=== PATIENT | female | born 1940 | race Caucasian/White ===

== ENCOUNTER 2017-09-26 09:52 | Outpatient (CLI) | payer MEDICARE, OTHER ==
[2017-09-26] MEDS ORDERED: SINCALIDE 5 MCG VIAL ONE (10:48)
--- NOTE | 2017-09-27 10:52 | Nuclear Medicine Report ---
EXAM: HEPATOBILIARY SCAN WITH CCK/KINEVAC ADMINISTRATION EXAM DATE: 09/26/2017 02:54 PM. CLINICAL HISTORY: Abdominal pain. COMPARISON: Ultrasound 04/10/2016. TECHNIQUE: Following the intravenous administration of 5.4 mCi of Tc99m Mebrofenin, a hepatobiliary s can was done centered on the liver and gallbladder in multiple sequential images and projections. Following the intravenous administration of 1.2 mcg of CCK/ Kinevac over the course of approximately 60 minutes, dynamic imaging was done and the gallbladder ejection fraction was calculated. FINDINGS: Normal extraction of tracer from the blood pool indicating normal hepatocellular function. The liver size and shape is grossly within normal limits. Appearance of tracer in the biliary tree as early as 10 minutes, within normal limits. Appearance of tracer in the gallbladder as early as 15 minutes, within normal limits, with good progr ession of filling throughout the remainder of the initial hour. Appearance of tracer in the small bowel as early as 40 minutes, within normal limits. With CCK administration, the gallbladder demonstrates an effective contraction. The gallbladder eject ion fraction is calculated to be 93%, well above the lower limit of normal of 38% for a 60-minute inj ection. IMPRESSION: 1. Patent cystic duct. 2. Patent common bile duct. 3. Negative for acute or chronic cholecystitis. 4. Gallbladder ejection fraction of 93%. [facility] Referring Provider Line: [phone] SITE ID: [id number]
== END 2017-09-26 09:53 | disposition home or self-care (01) ==
LOC: DI 09:52
PROVIDERS: ATTEND Family Medicine
DX: R10.9 Unspecified abdominal pain (principal)
CPT/HCPCS: 78227; A9537

== ENCOUNTER 2019-06-11 08:00 | Outpatient (CLI) | payer MEDICARE, OTHER | END 2019-06-11 23:59 | disposition home or self-care (01) | LOC: LAB.WCP 08:00 | PROVIDERS: ATTEND Family Medicine | DX: Z53.9 Procedure and treatment not carried out, unspecified reason (principal) ==

== ENCOUNTER 2019-07-20 14:11 | Outpatient (CLI) | payer MEDICARE, OTHER | END 2019-07-20 14:12 | disposition critical access hospital (66) | LOC: EMS 14:11 | PROVIDERS: ATTEND Surgery | DX: R07.9 Chest pain, unspecified (principal); M54.9 Dorsalgia, unspecified | CPT/HCPCS: A0425; A0429 ==

== ENCOUNTER 2019-07-20 14:33 | Emergency (ER) | payer MEDICARE, OTHER ==
--- NOTE | 2019-07-20 14:49 | ED Physician Documentation ---
PD HPI CHEST PAIN - Stated complaint Stated Complaint: CP/ BACKPAIN - Chief complaint Chief Complaint: Cardiac - History obtained from History obtained from: Patient - History of Present Illness Timing - onset: Other (79-year-old woman with no known history of coronary disease. Starting 2 days ago she had substernal chest pressure with the back discomfort while gardening. It was associated with inappropriate shortness of breath. Starting last night she has had a minimally productive cough. Feels like phlegm is stuck in her chest. She had an episode of chest pressure again today. She was seen at the doctor's office and referred here for further evaluation and treatment. She is pain-free now.) Review of Systems Ten Systems: 10 systems reviewed and negative Constitutional: denies: Fever, Chills, Fatigue Nose: denies: Rhinorrhea / runny nose, Congestion Cardiac: denies: Palpitations, Pedal edema, Calf pain Respiratory: reports: Dyspnea, Cough. denies: Hemoptysis, Wheezing GI: denies: Abdominal Pain, Nausea, Vomiting PD PAST MEDICAL HISTORY - Past Medical History Past Medical History: Yes Cardiovascular: High cholesterol Neuro: TIA GI: Diverticulitis Musculoskeletal: Other (Restless legs) - Allergies Allergies/Adverse Reactions: Allergies Allergy/AdvReac Type Severity Reaction Status Date / Time alendronate sodium Allergy Unknown Verified 07/20/19 14:44 [From Fosamax] bismuth subsalicylate Allergy Unknown Verified 07/20/19 14:44 ciprofloxacin Allergy Unknown Verified 07/20/19 14:44 estrogens, conjugated Allergy Unknown Verified 07/20/19 14:44 [From Premarin] olopatadine [From Patanol] Allergy Unknown Verified 07/20/19 14:44 red yeast rice Allergy Unknown Verified 07/20/19 14:44 Usgkxdf-Kms-Zgq Reductase Allergy Unknown Verified 07/20/19 14:44 Inhibitor - Living Situation Living Situation: reports: Alone - Social History Does the pt smoke?: No Does the pt drink ETOH?: No - Family History Family history: reports: Non contributory PD ED PE NORMAL - Vitals Vital signs reviewed: Yes - General General: Alert and oriented X 3, No acute distress - HEENT HEENT: PERRL, EOMI - Neck Neck: Supple, no meningeal sign, No bony TTP - Cardiac Cardiac: RRR, No murmur - Respiratory Respiratory: No respiratory distress, Clear bilaterally - Abdomen Abdomen: Normal bowel sounds, Soft, Non tender - Back Back: No CVA TTP, No spinal TTP - Derm Derm: Normal color, Warm and dry - Extremities Extremities: No edema, No calf tenderness / cord - Neuro Neuro: Alert and oriented X 3, Normal speech Results - Vitals Vitals: Vital Signs - 24 hr 07/20/19 07/20/19 14:34 15:47 Temperature 36.9 C Heart Rate 77 64 Respiratory 18 15 Rate Blood Pressure 176/87 H 154/87 H O2 Saturation 99 96 Oxygen O2 Source Room air - EKG (time done) 1445 Rate: Rate (enter#) (variable) Rhythm: Other (The beginning of the strip shows a rapid atrial fibrillation, during the strip with spontaneous converts to normal sinus rhythm.) [place]: Normal Intervals: Normal [place] QRS: Normal Ischemia: Non specific changes (Flat inferior T waves, no ST elevation or depression.) Computer interpretation: Disagree with computer - Labs Labs: Laboratory Tests 07/20/19 07/20/19 07/20/19 15:07 15:07 15:07 WBC 6.7 RBC 5.06 Hgb 14.7 Hct 43.7 MCV 86.4 MCH 29.1 MCHC 33.6 RDW 14.1 Plt Count 306 MPV 9.2 Neut # (Auto) 4.0 Lymph # (Auto) 1.6 [place] # (Auto) 0.8 Eos # (Auto) 0.2 Baso # (Auto) 0.1 Absolute Nucleated RBC 0.00 Nucleated RBC % 0.0 Sodium 139 Potassium 4.2 Chloride 102 Carbon Dioxide 28 Anion Gap 9.0 BUN 17 Creatinine 0.8 Estimated GFR (MDRD) 69 L Glucose 104 H Calcium 9.0 Total Bilirubin 0.9 AST 27 ALT 25 Alkaline Phosphatase 69 Troponin I High Sens 2.6 B-Natriuretic Peptide Total Protein 6.7 Albumin 3.9 Globulin 2.8 Albumin/Globulin Ratio 1.4 Lipase 44 07/20/19 15:07 WBC RBC Hgb Hct MCV MCH MCHC RDW Plt Count MPV Neut # (Auto) Lymph # (Auto) [place] # (Auto) Eos # (Auto) Baso # (Auto) Absolute Nucleated RBC Nucleated RBC % Sodium Potassium Chloride Carbon Dioxide Anion Gap BUN Creatinine Estimated GFR (MDRD) Glucose Calcium Total Bilirubin AST ALT Alkaline Phosphatase Troponin I High Sens B-Natriuretic Peptide 39 Total Protein Albumin Globulin Albumin/Globulin Ratio Lipase - Rads (name of study) 2v chest Radiology: EMP read contemporaneously (mild edema) PD MEDICAL DECISION MAKING - ED course ED course: 79-year-old woman presents with 2 episodes of exertional chest pain last few days. She is pain-free here. Note made that she has had some brief runs of relatively asymptomatic atrial fibrillation in the department. Her EKG is nonischemic and troponin is negative. She is symptom-free here. Chest x-ray showed mild pulmonary edema, this is inconsistent with her BNP which was negative. She was given a shot of Lasix here. I spoke with Dr. Davila's nurse, they will touch base with her on Tuesday to expedite a stress echocardiogram. Departure - Departure Disposition: Home, Self Care Clinical Impression: Chest pain Qualifiers: Chest pain type: unspecified Qualified Code(s): R07.9 - Chest pain, unspecified Atrial fibrillation Qualifiers: Atrial fibrillation type: paroxysmal Qualified Code(s): I48.0 - Paroxysmal atrial fibrillation Condition: Good Record reviewed to determine appropriate education?: Yes Instructions: Atrial Fibrillation Dc, ED Chest Pain Atypical Unkn Cause Comments: As discussed, today you have had some short episodes of atrial fibrillation. He also had some fluid in your lungs that was a small amount for which she was given a shot of a diuretic. I spoke with Dr. Davila's nurse. I recommended that they touch base with you on Tuesday to set up a stress echocardiogram. Also they need to see you in the office to talk about anticoagulation. Until then take a baby aspirin a day. If you develop recurrent symptoms please return immediately by ambulance for reevaluation peer
[2019-07-20 15:13] LABS: BASOPHILS # (AUTO) 0.1 10^3/uL (0.0-0.1); BASOPHILS % (AUTO) 1.2 %; EOSINOPHILS # (AUTO) 0.2 10^3/uL (0.0-0.7); EOSINOPHILS % (AUTO) 3.1 %; HGB - HEMOGLOBIN 14.7 g/dL (12.0-16.0); LYMPHOCYTES # (AUTO) 1.6 10^3/uL (1.5-3.5); LYMPHOCYTES % (AUTO) 23.9 %; MEAN CORPUSCULAR HEMOGLOBIN 29.1 pg (27.0-31.0); MEAN CORPUSCULAR HGB CONC 33.6 g/dL (32.0-36.0); MEAN CORPUSCULAR VOLUME 86.4 fL (81.0-99.0); MEAN PLATELET VOLUME 9.2 fL (7.9-10.8); MONOCYTES # (AUTO) 0.8 10^3/uL (0.0-1.0); MONOCYTES % (AUTO) 11.2 %; NEUTROPHILS % (AUTO) 60.2 %; PLT - PLATELET COUNT 306 10^3/uL (130-450); RED BLOOD COUNT 5.06 10^6/uL (4.20-5.40); RED CELL DISTRIBUTION WIDTH 14.1 % (12.0-15.0); WHITE BLOOD COUNT 6.7 x10^3/uL (4.8-10.8)
--- NOTE | 2019-07-20 15:16 | XRAY Report ---
Reason: chest discomfort Procedure Date: 07/20/2019 Accession Number: [id number] / [id number] Procedure: XR - Chest 2 View X-Ray CPT Code: 29226 FULL RESULT: EXAM: CHEST RADIOGRAPHY EXAM DATE: 07/20/2019 02:59 PM. CLINICAL HISTORY: Chest discomfort. COMPARISON: None. TECHNIQUE: 2 views. FINDINGS: Lungs/Pleura: Mildly prominent alveolar and interstitial markings bilaterally, with intraseptal markings subtly present at the right lung base, suggesting mild pulmonary edema. No focal consolidations identified. Mediastinum: Heart appears mildly enlarged. Other: None. IMPRESSION: Findings consistent with mild pulmonary edema. [facility]
[2019-07-20 15:25] LABS: ALBUMIN 3.9 g/dL (3.2-5.5); ALBUMIN/GLOBULIN RATIO 1.4 (1.0-2.2); BILIRUBIN,TOTAL 0.9 mg/dL (0.2-1.0); CREATININE 0.8 mg/dL (0.4-1.0); TOTAL PROTEIN 6.7 g/dL (6.7-8.2)
[2019-07-20] MEDS ORDERED: FUROSEMIDE 20 MG/2 ML VIAL IVP STA (15:27)
[2019-07-20 16:18] VITALS: BP 135/94
== END 2019-07-20 17:22 | disposition home or self-care (01) ==
LOC: EDUNIT# → ED 14:33
DX: R07.9 Chest pain, unspecified (principal); I48.0 Paroxysmal atrial fibrillation; J81.1 Chronic pulmonary edema
CPT/HCPCS: 36415; 71046; 80053; 83690; 83880; 84484; 85025; 93005; 96374; 99284

== ENCOUNTER 2019-08-09 11:20 | Outpatient (CLI) | payer MEDICARE, OTHER | END 2019-08-09 11:21 | disposition home or self-care (01) | LOC: DI 11:20 | PROVIDERS: ATTEND Family Medicine | DX: R07.9 Chest pain, unspecified (principal); I48.0 Paroxysmal atrial fibrillation; I35.1 Nonrheumatic aortic (valve) insufficiency | CPT/HCPCS: 93306 ==

== ENCOUNTER 2020-08-27 08:00 | Outpatient (CLI) | payer MEDICARE, OTHER ==
[2020-08-27 18:16] LABS: BASOPHILS # (AUTO) 0.1 10^3/uL (0.0-0.1); BASOPHILS % (AUTO) 1.2 %; EOSINOPHILS # (AUTO) 0.1 10^3/uL (0.0-0.7); EOSINOPHILS % (AUTO) 1.3 %; HGB - HEMOGLOBIN 15.8 g/dL (12.0-16.0); LYMPHOCYTES # (AUTO) 1.8 10^3/uL (1.5-3.5); LYMPHOCYTES % (AUTO) 24.2 %; MEAN CORPUSCULAR HEMOGLOBIN 29.9 pg (27.0-31.0); MEAN CORPUSCULAR HGB CONC 33.8 g/dL (32.0-36.0); MEAN CORPUSCULAR VOLUME 88.3 fL (81.0-99.0); MEAN PLATELET VOLUME 10.9 fL (7.9-10.8); MONOCYTES # (AUTO) 0.7 10^3/uL (0.0-1.0); MONOCYTES % (AUTO) 8.9 %; NEUTROPHILS # (AUTO) 4.8 10^3/uL (1.5-6.6); NEUTROPHILS % (AUTO) 63.9 %; PLT - PLATELET COUNT 326 10^3/uL (130-450); RED BLOOD COUNT 5.29 10^6/uL (4.20-5.40); RED CELL DISTRIBUTION WIDTH 13.6 % (12.0-15.0); WHITE BLOOD COUNT 7.5 x10^3/uL (4.8-10.8)
[2020-08-27 18:30] LABS: ALBUMIN/GLOBULIN RATIO 1.5 (1.0-2.2); BILIRUBIN,TOTAL 0.7 mg/dL (0.2-1.0); CALCIUM 9.3 mg/dL (8.5-10.3); CREATININE 0.8 mg/dL (0.4-1.0); TOTAL PROTEIN 6.6 g/dL (6.7-8.2)
== END 2020-08-27 23:59 | disposition home or self-care (01) ==
LOC: LAB.N 08:00
PROVIDERS: ATTEND Family Medicine
DX: K21.9 Gastro-esophageal reflux disease without esophagitis (principal)
CPT/HCPCS: 36415; 80053; 85025

== ENCOUNTER 2020-11-21 05:14 | Outpatient (CLI) | payer MEDICARE, OTHER | END 2020-11-21 23:59 | disposition short-term general hospital (02) | LOC: EMS 05:14 | DX: R00.0 Tachycardia, unspecified (principal) | CPT/HCPCS: A0425; A0429 ==

== ENCOUNTER 2020-11-22 18:48 | Outpatient (CLI) | payer MEDICARE, OTHER | END 2020-11-22 18:49 | disposition short-term general hospital (02) | LOC: EMS 18:48 | DX: R53.81 Other malaise (principal); R42 Dizziness and giddiness; R11.0 Nausea | CPT/HCPCS: A0425; A0429 ==

== ENCOUNTER 2021-01-27 10:08 | Outpatient (CLI) | payer MEDICARE, OTHER | END 2021-01-27 10:09 | disposition home or self-care (01) | LOC: DI 10:08 | PROVIDERS: ATTEND Family Medicine | DX: I48.0 Paroxysmal atrial fibrillation (principal); I35.1 Nonrheumatic aortic (valve) insufficiency | CPT/HCPCS: 93306 ==

== ENCOUNTER 2021-02-25 16:58 | Outpatient (CLI) | payer MEDICARE, OTHER ==
--- NOTE | 2021-02-25 18:52 | XRAY Report ---
PROCEDURE: Wrist 3 View LT INDICATIONS: FALL ON L WRIST TECHNIQUE: 3 views of the wrist were acquired. COMPARISON: None FINDINGS: Bones: Generalized decreased osseous mineralization present. There is a depressed fracture of the di stal radial metaphysis extending into the radiocarpal joint space without angulation. Triscaphoid and first carpometacarpal joint space narrowing with subchondral sclerosis noted. No suspicious soft tissue calcifications. No radiopaque foreign body IMPRESSION: Comminuted Intra-articular distal radial fracture Intercarpal and first carpometacarpal osteoarthritis Reviewed by: Dao Marie MD on 02/25/2021 5:51 PM [facility] Approved by: Dao Marie MD on 02/25/2021 5:51 PM [facility] Station ID: [id number]
== END 2021-02-25 23:59 | disposition home or self-care (01) ==
LOC: DI.N 16:58
PROVIDERS: ATTEND Nurse Practitioner
DX: S52.572A Other intraarticular fracture of lower end of left radius, initial encounter for closed fracture (principal); M19.032 Primary osteoarthritis, left wrist; M18.12 Unilateral primary osteoarthritis of first carpometacarpal joint, left hand

== ENCOUNTER 2021-04-09 17:36 | Outpatient (CLI) | payer MEDICARE, OTHER ==
--- NOTE | 2021-04-09 13:00 | XRAY Report ---
PROCEDURE: Wrist 3 View LT INDICATIONS: COLLES' FRACTURE OF LEFT RADIUS TECHNIQUE: 3 views of the wrist were acquired. COMPARISON: 02/25/2021 FINDINGS: Bones: Interval healing at distal radial impacted fracture site is seen with increased sclerosis. Ove rall alignment of wrist is not significantly changed from prior study. No new fracture or dislocation is seen. No suspicious bony lesions. Osteophytic changes throughout wrist joints are again seen. Soft tissues: No suspicious soft tissue calcifications. IMPRESSION: Healing distal radial fracture with stable anatomic wrist alignment. No new fracture or dislocation. Reviewed by: Leandro Trivedi MD on 04/09/2021 12:58 PM PDT Approved by: Leandro Trivedi MD on 04/09/2021 12:58 PM PDT Station ID: [id number]
== END 2021-04-09 23:59 | disposition home or self-care (01) ==
LOC: DI.N 17:36
PROVIDERS: ATTEND Orthopaedic Surgery
DX: S52.532A Colles' fracture of left radius, initial encounter for closed fracture (principal)

== ENCOUNTER 2021-06-08 14:07 | Outpatient (CLI) | payer MEDICARE, OTHER ==
[2021-06-08 18:27] LABS: BASOPHILS # (AUTO) 0.1 10^3/uL (0.0-0.1); BASOPHILS % (AUTO) 1.6 %; EOSINOPHILS # (AUTO) 0.1 10^3/uL (0.0-0.7); EOSINOPHILS % (AUTO) 1.6 %; HGB - HEMOGLOBIN 14.4 g/dL (12.0-16.0); LYMPHOCYTES # (AUTO) 1.9 10^3/uL (1.5-3.5); LYMPHOCYTES % (AUTO) 23.1 %; MEAN CORPUSCULAR HEMOGLOBIN 29.7 pg (27.0-31.0); MEAN CORPUSCULAR HGB CONC 33.5 g/dL (32.0-36.0); MEAN CORPUSCULAR VOLUME 88.7 fL (81.0-99.0); MEAN PLATELET VOLUME 10.7 fL (7.9-10.8); MONOCYTES # (AUTO) 0.7 10^3/uL (0.0-1.0); MONOCYTES % (AUTO) 8.6 %; NEUTROPHILS # (AUTO) 5.4 10^3/uL (1.5-6.6); NEUTROPHILS % (AUTO) 64.7 %; PLT - PLATELET COUNT 332 10^3/uL (130-450); RED BLOOD COUNT 4.85 10^6/uL (4.20-5.40); RED CELL DISTRIBUTION WIDTH 13.6 % (12.0-15.0); WHITE BLOOD COUNT 8.4 x10^3/uL (4.8-10.8)
[2021-06-08 18:54] LABS: ALBUMIN/GLOBULIN RATIO 1.6 (1.0-2.2); ALKALINE PHOSPHATASE 69 IU/L (42-121); ALT ALANINE AMINOTRANSFERASE 17 IU/L (10-60); AST ASPARTATE AMINOTRANSFERASE 22 IU/L (10-42); BILIRUBIN,TOTAL 0.6 mg/dL (0.2-1.0); BUN - BLOOD UREA NITROGEN 19 mg/dL (6-20); CALCIUM 9.2 mg/dL (8.5-10.3); CARBON DIOXIDE - CO2 29 mmol/L (21-32); CHLORIDE 101 mmol/L (101-111); CHOL/HDL RATIO 4.2 (<4.4); CHOLESTEROL 233 mg/dL; CK- CREATINE KINASE 236 IU/L (22-269); CREATININE 0.8 mg/dL (0.4-1.0); GFR - MDRD 69 (>89); GLUCOSE 88 mg/dL (70-100); HDL CHOLESTEROL 55 mg/dL; LDL CHOLESTEROL,CALCULATED 146 mg/dL; LDL/HDL RATIO 2.7 (<4.4); MAGNESIUM 2.2 mg/dL (1.7-2.8); POTASSIUM 4.2 mmol/L (3.5-5.0); SODIUM 138 mmol/L (135-145); THYROID STIMULATING HORMONE 1.28 uIU/mL (0.34-5.60); TOTAL PROTEIN 6.5 g/dL (6.7-8.2); TRIGLYCERIDES 160 mg/dL; VLDL CHOLESTEROL 32 mg/dL
== END 2021-06-08 23:59 | disposition home or self-care (01) ==
LOC: LAB.WCP 14:07
PROVIDERS: ATTEND Family Medicine
DX: I48.0 Paroxysmal atrial fibrillation (principal); E78.5 Hyperlipidemia, unspecified; R25.2 Cramp and spasm
CPT/HCPCS: 36415; 80053; 80061; 82550; 83721; 83735; 84443; 85025

== ENCOUNTER 2021-07-16 08:00 | Outpatient (CLI) | payer MEDICARE, OTHER | END 2021-07-16 23:59 | disposition home or self-care (01) | LOC: LAB.N 08:00 | PROVIDERS: ATTEND Family Medicine | DX: K30 Functional dyspepsia (principal); Z20.822 Contact with and (suspected) exposure to COVID-19 ==

== ENCOUNTER 2021-08-21 01:39 | Outpatient (CLI) | payer MEDICARE, OTHER | END 2021-08-21 01:40 | disposition EMS.NT | LOC: EMS 01:39 | DX: R11.0 Nausea (principal); F41.9 Anxiety disorder, unspecified ==

== ENCOUNTER 2021-11-16 06:25 | Outpatient (CLI) | payer MEDICARE, OTHER | END 2021-11-16 06:26 | disposition critical access hospital (66) | LOC: EMS 06:25 | DX: R00.0 Tachycardia, unspecified (principal) | CPT/HCPCS: A0425; A0429 ==

== ENCOUNTER 2021-11-16 06:50 | Emergency (ER) | payer MEDICARE, OTHER ==
[2021-11-16 07:19] LABS: BASOPHILS # (AUTO) 0.1 10^3/uL (0.0-0.1); BASOPHILS % (AUTO) 0.8 %; EOSINOPHILS # (AUTO) 0.2 10^3/uL (0.0-0.7); EOSINOPHILS % (AUTO) 2.1 %; HCT - HEMATOCRIT 43.2 % (37.0-47.0); HGB - HEMOGLOBIN 14.8 g/dL (12.0-16.0); LYMPHOCYTES # (AUTO) 2.5 10^3/uL (1.5-3.5); LYMPHOCYTES % (AUTO) 24.2 %; MEAN CORPUSCULAR HEMOGLOBIN 29.7 pg (27.0-31.0); MEAN CORPUSCULAR HGB CONC 34.3 g/dL (32.0-36.0); MEAN CORPUSCULAR VOLUME 86.7 fL (81.0-99.0); MONOCYTES % (AUTO) 9.3 %; NEUTROPHILS # (AUTO) 6.6 10^3/uL (1.5-6.6); PLT - PLATELET COUNT 321 10^3/uL (130-450); RED BLOOD COUNT 4.98 10^6/uL (4.20-5.40); RED CELL DISTRIBUTION WIDTH 13.5 % (12.0-15.0); WHITE BLOOD COUNT 10.5 x10^3/uL (4.8-10.8)
[2021-11-16 07:36] LABS: ALBUMIN 3.8 g/dL (3.2-5.5); ALBUMIN/GLOBULIN RATIO 1.4 (1.0-2.2); CALCIUM 8.9 mg/dL (8.5-10.3); CREATININE 0.8 mg/dL (0.4-1.0); POTASSIUM 3.7 mmol/L (3.5-5.0); TOTAL PROTEIN 6.5 g/dL (6.7-8.2)
--- NOTE | 2021-11-16 08:15 | XRAY Report ---
PROCEDURE: Chest 1 View X-Ray INDICATIONS: Chest Pain COMMENTS: chest pain PRIORS: 07/20/19 TECHNIQUE: One view of the chest was acquired. COMPARISON: 07/20/2019 FINDINGS: Surgical changes and devices: None. Lungs and pleura: No pleural effusions or pneumothorax. Lungs are clear. Bibasilar interstitial chronic opacities. Mediastinum: Mediastinal contours appear normal. Heart size is normal. Bones and chest wall: No suspicious bony lesions. Overlying soft tissues appear unremarkable. IMPRESSION: Mild chronic basilar interstitial opacities. No acute airspace disease. Findings above correspond with preliminary findings by [facility]. Reviewed by: Willam Gómez on 11/16/2021 8:13 AM [facility] Approved by: Willam Gómez on 11/16/2021 8:13 AM [facility] Station ID: [id number]
--- NOTE | 2021-11-16 08:24 | ED Physician Documentation ---
History of Present Illness - Stated complaint Stated Complaint: HEART RACING - Chief complaint Chief Complaint: Cardiac - History obtained from History obtained from: Patient - Additonal information Additional information: Comes to the emergency department with chief complaint of heart racing. She states that she has a history of atrial fibrillation and sees Dr. Bond of cardiology for this, but that she has not had any episodes that she knows of for the last year. She states that she is very sensitive to changes in the barometric pressure and she thinks that the weather change last night is what probably put her in A. fib. She states this is happened before and that she also gets blood pressure changes with barometric pressure changes. The patient states that she has not had any chest pain or shortness of breath throughout the time that her heart has been racing. She states this started yesterday evening around 1900 and that she just could not sleep because she could feel her heart beating fast. She took 12.5 mg of metoprolol last night, which is her normal dose, but states she does not have a provision to take extra, should she go into A. fib or experience palpitations. She finally decided to come in here because her heart just was not going back to normal. The patient states that she is not on any anticoagulation at this time. She states that she was referred to Dr. Vidya gaitan after her first episode of A. fib and had extensive work-up, including echo, event monitor, and stress test, all of which were unremarkable. She states that Dr. Buckner wanted her to go on Eliquis, but it was too expensive, so he prescribed Xarelto instead. However, the patient states she did not like the way Xarelto made her feel, so she stopped taking it. She sees Dr. Davila for primary care, and states she was advised by Dr. Davila to just take an aspirin and that she did not need the anticoagulant because she was not continuously in A. fib. The patient states that when she saw Dr. Bond for a telehealth visit this last fall, he was not pleased about this and wanted her to be on a better anticoagulant than just a baby aspirin for her paroxysmal A. fib. He tried to arrange Eliquis for the patient again, but she states that when she went to pick it up at the pharmacy, it was very expensive and so she decided that she would not take it. She has not contacted Dr. Bond since to let him know that she is not on any anticoagulation, but states that Dr. Davila has continued to encourage her to just take aspirin. The patient states she is pretty sure she has not had any further episodes of A. fib since a year ago, until last night. No other complaints at this time. Review of Systems Ten Systems: 10 systems reviewed and negative Constitutional: reports: Reviewed and negative Eyes: reports: Reviewed and negative Ears: reports: Reviewed and negative Nose: reports: Reviewed and negative Throat: reports: Reviewed and negative Cardiac: reports: Palpitations Respiratory: reports: Reviewed and negative GI: reports: Reviewed and negative : reports: Reviewed and negative Skin: reports: Reviewed and negative Musculoskeletal: reports: Reviewed and negative Neurologic: reports: Reviewed and negative Psychiatric: reports: Reviewed and negative Endocrine: reports: Reviewed and negative Immunocompromised: reports: Reviewed and negative PD PAST MEDICAL HISTORY - Past Medical History Past Medical History: Yes Cardiovascular: High cholesterol, Atrial fibrillation Neuro: TIA GI: Diverticulitis Psych: Anxiety Musculoskeletal: Other - Past Surgical History Past Surgical History: No - Allergies Allergies/Adverse Reactions: Allergies Allergy/AdvReac Type Severity Reaction Status Date / Time alendronate sodium Allergy Unknown Verified 11/16/21 07:00 [From Fosamax] bismuth subsalicylate Allergy Unknown Verified 11/16/21 07:00 ciprofloxacin Allergy Unknown Verified 11/16/21 07:00 estrogens, conjugated Allergy Unknown Verified 11/16/21 07:00 [From Premarin] olopatadine [From Patanol] Allergy Unknown Verified 11/16/21 07:00 red yeast rice Allergy Unknown Verified 11/16/21 07:00 Nepkxtc-TGD-VtQ Reductase Allergy Unknown Verified 11/16/21 07:00 Inhibitor [Qkkswlc-Ugs-Jxf Reductase Inhibitor] - Social History Does the pt smoke?: No Smoking Status: Never smoker Does the pt drink ETOH?: No Does the pt have substance abuse?: No PD ED PE NORMAL - Vitals Vital signs reviewed: Yes - General General: Alert and oriented X 3, No acute distress, Well developed/nourished - HEENT HEENT: Atraumatic, PERRL, EOMI, Moist mucous membranes - Neck Neck: Supple, no meningeal sign - Cardiac Cardiac: No murmur, Other (Regular rate and rhythm, tachycardic.) - Respiratory Respiratory: No respiratory distress, Clear bilaterally - Abdomen Abdomen: Soft, Non tender, Non distended - Derm Derm: Normal color, Warm and dry, No rash - Extremities Extremities: No deformity, No edema, No calf tenderness / cord - Neuro Neuro: Alert and oriented X 3, second facing baster 2-12 intact, Normal speech, Other (Grossly normal) - Psych Psych: Normal mood, Normal affect Results - Vitals Vitals: Vital Signs - 24 hr 11/16/21 11/16/21 11/16/21 07:01 07:33 08:03 Temperature 36.2 C L Heart Rate 122 H 137 H 138 H Respiratory 16 21 17 Rate Blood Pressure 122/93 H 111/85 H 146/117 H O2 Saturation 100 98 98 11/16/21 11/16/21 08:30 09:00 Temperature Heart Rate 85 77 Respiratory 13 16 Rate Blood Pressure 102/70 101/65 O2 Saturation 95 98 Oxygen O2 Source Room air - EKG (time done) 0700 Rate: Rate (enter#) (130) Rhythm: Atrial fibrillation [place]: Normal QRS: Normal Ischemia: ST depression (Probably rate related) Compare to prior EKG: Old EKG unavailable Computer interpretation: Agree with computer 0911 Rate: Rate (enter#) (63) Rhythm: NSR [place]: Normal Intervals: Normal [place] QRS: Normal Ischemia: Normal ST segments Compare to prior EKG: Changed from prior EKG (Converted from atrial fibrillation to normal sinus rhythm) Computer interpretation: Agree with computer - Labs Labs: Laboratory Tests 11/16/21 11/16/21 11/16/21 07:00 07:00 07:00 WBC 10.5 RBC 4.98 Hgb 14.8 Hct 43.2 MCV 86.7 MCH 29.7 MCHC 34.3 RDW 13.5 Plt Count 321 MPV 10.0 Neut # (Auto) 6.6 Lymph # (Auto) 2.5 [place] # (Auto) 1.0 Eos # (Auto) 0.2 Baso # (Auto) 0.1 Absolute Nucleated RBC 0.00 Nucleated RBC % 0.0 Sodium 135 Potassium 3.7 Chloride 98 L Carbon Dioxide 27 Anion Gap 10.0 BUN 19 Creatinine 0.8 Estimated GFR (MDRD) 69 L Glucose 105 H Calcium 8.9 Total Bilirubin 1.0 AST 23 ALT 15 Alkaline Phosphatase 78 Troponin I High Sens 5.1 Total Protein 6.5 L Albumin 3.8 Globulin 2.7 Albumin/Globulin Ratio 1.4 Lipase 39 PD MEDICAL DECISION MAKING - ED course Complexity details: reviewed results, re-evaluated patient, considered differential, d/w patient ED course: The patient was worked up with EKG, as well as laboratory studies, and treated with IV Cardizem 15 mg. Heart rate had initially been in the 110's to 160s, with atrial fibrillation on the monitor. 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 fib with RVR. After the IV dose of Cardizem and an oral dose of Cardizem 120 mg, the patient did spontaneously convert back to normal sinus rhythm after initially continuing in A. fib but having a heart rate that had dropped into the 80s. Repeat EKG showed normal sinus rhythm as opposed to the initial atrial fibrillation with rapid ventricular response. The patient felt much better, and I felt she was stable for discharge home. We have discussed taking an extra dose of metoprolol if she has another episode of the A. fib with RVR. We have also discussed the usual indications for return and the need for follow-up with Dr. Bond. - Critical Care Time(min): 30 Comments: Critical care time is necessary, due to high probability of imminent decline and , secondary to extreme tachycardia, due to atrial fibrillation with rapid ventricular response. Data interpretation: Labs, Pulse ox, Prior EKG, Cardiac output, See progress note Departure - Departure Disposition: 01 Home, Self Care Clinical Impression: Paroxysmal atrial fibrillation with rapid ventricular response Condition: Stable Instructions: ED Afib Comments: Your labs look great. Between the IV medication and the oral dose we gave you, your heart has converted back to a normal rhythm. If you have an episode of atrial fibrillation again that does not seem to want to go back on its own, you may take an extra dose of your metoprolol every couple of hours, as long as you are feeling well enough, and this may well cause your heart to go back to its normal rhythm. If after 2 extra doses, you are not noticing any improvement, or if you have chest pain or shortness of breath along with the heart racing, then you should come to the emergency department immediately. Otherwise, please follow-up with Dr. Bond and your primary doctor for further care.
[2021-11-16] MEDS: diltiaZEM INJ 5 MG/ML VIAL IVP STA (08:36)
[2021-11-16] MEDS: diltiaZEM CD 120 MG CAPSULE PO STA (09:01)
[2021-11-16 09:32] VITALS: BP 110/53
== END 2021-11-16 09:52 | disposition home or self-care (01) ==
LOC: EDUNIT# → ED 06:50
DX: I48.0 Paroxysmal atrial fibrillation (principal)
CPT/HCPCS: 36415; 71045; 80053; 83690; 84484; 85025; 93005; 96374; 99291; A9270

== ENCOUNTER 2021-11-29 20:07 | Emergency (ER) | payer MEDICARE, OTHER ==
[2021-11-29] MEDS ORDERED: MAGNESIUM SULFATE 2 GRAM 2 GM/50 ML BAG IV ONE (20:27)
[2021-11-29] MEDS ORDERED: diltiaZEM INJ 5 MG/ML VIAL IVP STA (20:27)
[2021-11-29 20:31] LABS: BASOPHILS # (AUTO) 0.1 10^3/uL (0.0-0.1); BASOPHILS % (AUTO) 0.8 %; EOSINOPHILS # (AUTO) 0.2 10^3/uL (0.0-0.7); HCT - HEMATOCRIT 41.8 % (37.0-47.0); HGB - HEMOGLOBIN 14.3 g/dL (12.0-16.0); LYMPHOCYTES # (AUTO) 2.9 10^3/uL (1.5-3.5); LYMPHOCYTES % (AUTO) 28.4 %; MEAN CORPUSCULAR HEMOGLOBIN 29.4 pg (27.0-31.0); MEAN CORPUSCULAR HGB CONC 34.2 g/dL (32.0-36.0); MEAN CORPUSCULAR VOLUME 85.8 fL (81.0-99.0); MEAN PLATELET VOLUME 9.8 fL (7.9-10.8); MONOCYTES % (AUTO) 9.6 %; NEUTROPHILS # (AUTO) 6.1 10^3/uL (1.5-6.6); NEUTROPHILS % (AUTO) 58.9 %; PLT - PLATELET COUNT 313 10^3/uL (130-450); RED BLOOD COUNT 4.87 10^6/uL (4.20-5.40); RED CELL DISTRIBUTION WIDTH 13.4 % (12.0-15.0); WHITE BLOOD COUNT 10.3 x10^3/uL (4.8-10.8)
--- NOTE | 2021-11-29 20:46 | ED Physician Documentation ---
PD HPI CHEST PAIN - Stated complaint Stated Complaint: SOA, RHR, ANXIETY,DIZZINESS - Chief complaint Chief Complaint: Cardiac - History obtained from History obtained from: Patient - Additional information Additional information: 81-year-old woman with paroxysmal atrial fibrillation, not anticoagulated because she had an allergic reaction to Xarelto and other anticoagulants were cost prohibitive. Last episode of A. fib was about 2 weeks ago when she was seen here and converted after rate control. This evening at 430 after working on the yard she started to feel short of breath and rapid heart rate consistent with prior episodes of A. fib. There is no chest pain. No pedal edema. She thinks she took an extra dose of her metoprolol. She last saw her ski top trimmer around 5 or 6 months ago. Review of Systems Ten Systems: 10 systems reviewed and negative Constitutional: denies: Fever, Chills Cardiac: reports: Palpitations. denies: Chest pain / pressure Respiratory: reports: Dyspnea. denies: Cough PD PAST MEDICAL HISTORY - Past Medical History Cardiovascular: High cholesterol, Atrial fibrillation Neuro: TIA GI: Diverticulitis Psych: Anxiety Musculoskeletal: Other - Past Surgical History Past Surgical History: No - Allergies Allergies/Adverse Reactions: Allergies Allergy/AdvReac Type Severity Reaction Status Date / Time alendronate sodium Allergy Unknown Verified 11/16/21 07:00 [From Fosamax] bismuth subsalicylate Allergy Unknown Verified 11/16/21 07:00 ciprofloxacin Allergy Unknown Verified 11/16/21 07:00 estrogens, conjugated Allergy Unknown Verified 11/16/21 07:00 [From Premarin] olopatadine [From Patanol] Allergy Unknown Verified 11/16/21 07:00 red yeast rice Allergy Unknown Verified 11/16/21 07:00 Lasktsf-XIX-JkN Reductase Allergy Unknown Verified 11/16/21 07:00 Inhibitor [Tlmnecj-Ycl-Uey Reductase Inhibitor] - Social History Does the pt smoke?: No Smoking Status: Never smoker Does the pt drink ETOH?: No Does the pt have substance abuse?: No PD ED PE NORMAL - Vitals Vital signs reviewed: Yes - General General: Alert and oriented X 3, No acute distress - HEENT HEENT: PERRL, EOMI - Neck Neck: Supple, no meningeal sign, No bony TTP - Cardiac Cardiac: Other (Rapid and irregular without murmur) - Respiratory Respiratory: No respiratory distress, Clear bilaterally - Abdomen Abdomen: Non tender - Extremities Extremities: No edema, No calf tenderness / cord - Neuro Neuro: Alert and oriented X 3, Normal speech Results - Vitals Vitals: Vital Signs - 24 hr 11/29/21 11/29/21 11/29/21 20:18 20:21 20:31 Temperature 36.6 C 36.6 C Heart Rate 147 H 147 H 124 H Respiratory 16 16 12 Rate Blood Pressure 130/99 H 130/99 H 118/83 H O2 Saturation 97 97 99 11/29/21 11/29/21 11/29/21 20:35 20:40 20:45 Temperature Heart Rate 110 H 113 H 73 Respiratory 16 17 13 Rate Blood Pressure 115/74 117/68 136/75 H O2 Saturation 115 H 97 95 Oxygen O2 Source Room air - EKG (time done) 2022 Rate: Rate (enter#) (118) Rhythm: Atrial fibrillation Lorenzo: Normal QRS: Normal Ischemia: Non specific changes Computer interpretation: Agree with computer - Labs Labs: Laboratory Tests 11/29/21 11/29/21 11/29/21 20:20 20:20 20:20 WBC 10.3 RBC 4.87 Hgb 14.3 Hct 41.8 MCV 85.8 MCH 29.4 MCHC 34.2 RDW 13.4 Plt Count 313 MPV 9.8 Neut # (Auto) 6.1 Lymph # (Auto) 2.9 [place] # (Auto) 1.0 Eos # (Auto) 0.2 Baso # (Auto) 0.1 Absolute Nucleated RBC 0.00 Nucleated RBC % 0.0 PT 11.1 INR 1.0 Sodium 130 L Potassium 3.6 Chloride 96 L Carbon Dioxide 24 Anion Gap 10.0 BUN 23 H Creatinine 0.8 Estimated GFR (MDRD) 69 L Glucose 102 H Calcium 8.9 Magnesium 2.1 Total Bilirubin 0.5 AST 21 ALT 17 Alkaline Phosphatase 90 Total Protein 6.4 L Albumin 4.0 Globulin 2.4 Albumin/Globulin Ratio 1.7 PD MEDICAL DECISION MAKING - ED course ED course: Still a fair amount of [id number] woman presents with recurrent rapid A. fib. She was given 15 mg of IV diltiazem push and a 2 g magnesium drip with the rate was feeling better and was completely rate controlled. In the past she has been resistant to anticoagulation because of side effects and cost. We discussed her [id number] 2 and HASBLED scores which do suggest that there would be risk reduction with anticoagulation, that said because of her history of side effects with Xarelto, the cost, and the fact that her sister suffered an intracranial hemorrhage with hemiparesis related to anticoagulant use she is understandably hesitant. She will call her ski top trimmer tomorrow to discuss. Departure - Departure Disposition: 01 Home, Self Care Clinical Impression: Paroxysmal atrial fibrillation with rapid ventricular response Condition: Good Record reviewed to determine appropriate education?: Yes Instructions: ED Paroxysmal Atrial Flutter Comments: You were seen today for rapid atrial fibrillation. We were able to convert this with: Diltiazem 15 mg IV, and Magnesium sulfate 2 g as a drip. It is important to follow-up with your ski top trimmer, call his office tomorrow. As we discussed, I know he wants you on a stronger blood thinner than aspirin, your risk of major bleeding per the "HAS-BLED" score per year is about 3.4% and your risk of stroke per the "CHADS-VASC" score is about 4.8 %/year. Asked Dr. Bond if it would be appropriate to start either and as needed or scheduled antiarrhythmic to prevent further episodes of atrial fibrillation.
[2021-11-29 20:48] LABS: PT - PROTHROMBIN TIME 11.1 secs (9.9-12.6)
[2021-11-29 20:53] LABS: ALBUMIN/GLOBULIN RATIO 1.7 (1.0-2.2); BILIRUBIN,TOTAL 0.5 mg/dL (0.2-1.0); CALCIUM 8.9 mg/dL (8.5-10.3); CREATININE 0.8 mg/dL (0.4-1.0); MAGNESIUM 2.1 mg/dL (1.7-2.8); POTASSIUM 3.6 mmol/L (3.5-5.0); TOTAL PROTEIN 6.4 g/dL (6.7-8.2)
[2021-11-29 21:54] VITALS: BP 103/73
== END 2021-11-29 22:06 | disposition home or self-care (01) ==
LOC: ED 20:07
DX: I48.0 Paroxysmal atrial fibrillation (principal); Z88.8 Allergy status to other drugs, medicaments and biological substances
CPT/HCPCS: 36415; 80053; 83735; 85025; 85610; 93005; 96365; 96375; 99282

== ENCOUNTER 2022-10-12 21:09 | Emergency (ER) | payer MEDICARE, OTHER ==
[2022-10-12 21:37] VITALS: BP 140/73
--- NOTE | 2022-10-12 22:48 | ED Physician Documentation ---
History of Present Illness - Stated complaint Stated Complaint: HEAD/BODY TINGLING,SHAKING, DIFFICULTY SPEAKING - Chief complaint Chief Complaint: General - History obtained from History obtained from: Patient - Additonal information Additional information: 82-year-old woman presents with multiple episodes of full body tingling and nausea lasting several minutes at a time for which she went to walk-in clinic yesterday and had EKG and full neurological exam. Patient was told the everything was normal and sent home. Of note she started omeprazole 3 weeks ago for GERD and has concerns that this is causing her tingling episodes. Patient denies other symptoms Review of Systems Ten Systems: 10 systems reviewed and negative Constitutional: denies: Fever, Chills Neurologic: reports: Numbness, Other (tingling) Psychiatric: reports: Anxiety, Other (claustrophobia) PD PAST MEDICAL HISTORY - Past Medical History Cardiovascular: High cholesterol, Atrial fibrillation Neuro: TIA GI: Diverticulitis Psych: Anxiety Musculoskeletal: Other - Past Surgical History Past Surgical History: No - Allergies Allergies/Adverse Reactions: Allergies Allergy/AdvReac Type Severity Reaction Status Date / Time alendronate sodium Allergy Unknown Verified 10/12/22 21:37 [From Fosamax] bismuth subsalicylate Allergy Unknown Verified 10/12/22 21:37 ciprofloxacin Allergy Unknown Verified 10/12/22 21:37 estrogens, conjugated Allergy Unknown Verified 10/12/22 21:37 [From Premarin] olopatadine [From Patanol] Allergy Unknown Verified 10/12/22 21:37 red yeast rice Allergy Unknown Verified 10/12/22 21:37 Nwksuyu-TNO-MsD Reductase Allergy Unknown Verified 10/12/22 21:37 Inhibitor [Ufzovry-Eil-Cvj Reductase Inhibitor] - Social History Does the pt smoke?: No Smoking Status: Never smoker Does the pt drink ETOH?: No Does the pt have substance abuse?: No - Immunizations Immunizations are current?: Yes - POLST Patient has POLST: No PD ED PE NORMAL - Vitals Vital signs reviewed: Yes - General General: Alert and oriented X 3, No acute distress, Well developed/nourished, Other (visibly anxious, pacing in room upon my arrival) - HEENT HEENT: Atraumatic, PERRL, EOMI, Moist mucous membranes, Pharynx benign - Neck Neck: Supple, no meningeal sign - Cardiac Cardiac: RRR - Respiratory Respiratory: No respiratory distress, Clear bilaterally - Abdomen Abdomen: Non tender, Non distended - Derm Derm: Normal color, Warm and dry - Extremities Extremities: No deformity - Neuro Neuro: No motor deficit, No sensory deficit - Psych Psych: Other (anxious affect. ) Results - Vitals Vitals: Vital Signs - 24 hr 10/12/22 21:34 Temperature 36.6 C Heart Rate 71 Respiratory 17 Rate Blood Pressure 140/73 H O2 Saturation 97 Oxygen O2 Source Room air PD Medical Decision Making - ED course ED course: 82-year-old woman presented for multiple full body tingling episodes associated with nausea over the past couple days. She has been to walk-in clinic for this and told that everything is normal. Patient has a benign exam in the ED. Discussed symptomatic care at home. Return precautions given. Plan follow-up in walk-in clinic Departure - Departure Disposition: 01 Home, Self Care Clinical Impression: Tingling, Nausea Condition: Good Instructions: ED Panic Attack Comments: You are seen in the emergency department for full body tingling and nausea. Your vital signs and exam here in the emergency department was normal. Please hand picker gin-gin marie chews from your local pharmacy as well as marie tea. You can try stopping omeprazole for a week since you have concerns about side effects. Please follow up with your primary care provider or with walk in clinic in one week. Return to the emergency department for new or worsening symptoms or other concerns.
== END 2022-10-12 22:57 | disposition home or self-care (01) ==
LOC: ED 21:09
DX: R20.2 Paresthesia of skin (principal); R11.0 Nausea
CPT/HCPCS: 99281; 99282

== ENCOUNTER 2022-10-15 14:50 | Outpatient (CLI) | payer MEDICARE, OTHER | END 2022-10-15 14:51 | disposition home or self-care (01) | LOC: LAB.N 14:50 | PROVIDERS: ATTEND Physician Assistant Medical | DX: Z53.9 Procedure and treatment not carried out, unspecified reason (principal) | CPT/HCPCS: 36415; 82607; 85027; 86140 ==

== ENCOUNTER 2022-10-21 09:35 | Outpatient (CLI) | payer MEDICARE, OTHER ==
[2022-10-21 12:45] LABS: BASOPHILS # (AUTO) 0.1 10^3/uL (0.0-0.1); BASOPHILS % (AUTO) 1.6 %; EOSINOPHILS # (AUTO) 0.1 10^3/uL (0.0-0.7); EOSINOPHILS % (AUTO) 1.2 %; HCT - HEMATOCRIT 44.5 % (37.0-47.0); HGB - HEMOGLOBIN 14.8 g/dL (12.0-16.0); LYMPHOCYTES # (AUTO) 2.6 10^3/uL (1.5-3.5); MEAN CORPUSCULAR HEMOGLOBIN 28.8 pg (27.0-31.0); MEAN CORPUSCULAR HGB CONC 33.3 g/dL (32.0-36.0); MEAN CORPUSCULAR VOLUME 86.7 fL (81.0-99.0); MEAN PLATELET VOLUME 10.6 fL (7.9-10.8); MONOCYTES # (AUTO) 0.8 10^3/uL (0.0-1.0); NEUTROPHILS # (AUTO) 3.7 10^3/uL (1.5-6.6); NEUTROPHILS % (AUTO) 50.7 %; PLT - PLATELET COUNT 360 10^3/uL (130-450); RED BLOOD COUNT 5.13 10^6/uL (4.20-5.40); RED CELL DISTRIBUTION WIDTH 13.7 % (12.0-15.0); WHITE BLOOD COUNT 7.4 x10^3/uL (4.8-10.8)
[2022-10-21 12:58] LABS: ALBUMIN 4.1 g/dL (3.2-5.5); ALBUMIN/GLOBULIN RATIO 1.5 (1.0-2.2); ALKALINE PHOSPHATASE 87 IU/L (42-121); ALT ALANINE AMINOTRANSFERASE 20 IU/L (10-60); AST ASPARTATE AMINOTRANSFERASE 30 IU/L (10-42); BUN - BLOOD UREA NITROGEN 14 mg/dL (6-20); CALCIUM 9.5 mg/dL (8.5-10.3); CARBON DIOXIDE - CO2 29 mmol/L (21-32); CHLORIDE 99 mmol/L (101-111); CREATININE 0.8 mg/dL (0.4-1.0); GFR - MDRD 68 (>89); GLUCOSE 108 mg/dL (70-100); POTASSIUM 4.2 mmol/L (3.5-5.0); SODIUM 135 mmol/L (135-145); TOTAL PROTEIN 6.9 g/dL (6.7-8.2)
[2022-10-21 13:00] LABS: CRP - C-REACTIVE PROTEIN < 1.0 mg/dL (0-1.0)
[2022-10-21 13:15] LABS: THYROID STIMULATING HORMONE 1.14 uIU/mL (0.34-5.60)
[2022-10-21 13:18] LABS: ESTIMATED AVERAGE GLUCOSE 111 mg/dL (70-100); HEMOGLOBIN A1c% 5.5 % (4.27-6.07)
== END 2022-10-21 09:36 | disposition home or self-care (01) ==
LOC: LAB.N 09:35
PROVIDERS: ATTEND Physician Assistant Medical
DX: R20.2 Paresthesia of skin (principal); R73.01 Impaired fasting glucose
CPT/HCPCS: 36415; 80053; 82607; 83036; 84443; 85025; 85651; 86140

== ENCOUNTER 2022-11-08 12:09 | Outpatient (CLI) | payer MEDICARE, OTHER ==
--- NOTE | 2022-11-08 17:08 | XRAY Report ---
PROCEDURE: Cervical Spine Comp w/Flex/Ext INDICATIONS: CERVICALGIA TECHNIQUE: 7 views of the cervical spine were acquired. COMPARISON: None. FINDINGS: Bones: No fractures or dislocations to the T1 level. Straightening of normal cervical lordosis is s een. Degenerative endplate changes, loss of disc height and bilateral facet hypertrophic changes are noted throughout cervical spine. 2 mm anterolisthesis of C7 on T1 is noted. No suspicious bony lesion s. There is decreased range of motion between flexion and extension, with preserved cervical spine a lignment. Oblique views shows no significant bony foraminal stenosis. Soft tissues: Prevertebral soft tissues are normal in thickness. IMPRESSION: Degenerative disc disease throughout cervical spine. Minimal anterolisthesis of C7 on T1 . Decreased range of motion on lateral flexion and extension views with preserved cervical spine alig nment. No significant bony foraminal stenosis is seen on oblique views. Reviewed by: Leandro Trivedi MD on 11/08/2022 5:07 PM PST Approved by: Leandro Trivedi MD on 11/08/2022 5:07 PM PST Station ID: [id number]
== END 2022-11-08 12:10 | disposition home or self-care (01) ==
LOC: DI 12:09
PROVIDERS: ATTEND Physician Assistant
DX: M50.33 Other cervical disc degeneration, cervicothoracic region (principal)

== ENCOUNTER 2023-06-02 08:36 | Outpatient (CLI) | payer MEDICARE, OTHER ==
[2023-06-02 11:51] LABS: BASOPHILS # (AUTO) 0.1 10^3/uL (0.0-0.1); BASOPHILS % (AUTO) 1.4 %; EOSINOPHILS # (AUTO) 0.2 10^3/uL (0.0-0.7); EOSINOPHILS % (AUTO) 2.7 %; HGB - HEMOGLOBIN 14.9 g/dL (12.0-16.0); LYMPHOCYTES # (AUTO) 2.7 10^3/uL (1.5-3.5); LYMPHOCYTES % (AUTO) 34.5 %; MEAN CORPUSCULAR HGB CONC 33.1 g/dL (32.0-36.0); MEAN CORPUSCULAR VOLUME 87.7 fL (81.0-99.0); MEAN PLATELET VOLUME 10.7 fL (7.9-10.8); MONOCYTES # (AUTO) 0.7 10^3/uL (0.0-1.0); NEUTROPHILS # (AUTO) 4.1 10^3/uL (1.5-6.6); NEUTROPHILS % (AUTO) 52.1 %; PLT - PLATELET COUNT 357 10^3/uL (130-450); RED BLOOD COUNT 5.13 10^6/uL (4.20-5.40); RED CELL DISTRIBUTION WIDTH 13.7 % (12.0-15.0); WHITE BLOOD COUNT 7.8 x10^3/uL (4.8-10.8)
[2023-06-02 12:28] LABS: ALBUMIN 4.2 g/dL (3.2-5.5); ALBUMIN/GLOBULIN RATIO 1.7 (1.0-2.2); ALKALINE PHOSPHATASE 81 IU/L (42-121); ALT ALANINE AMINOTRANSFERASE 14 IU/L (10-60); AST ASPARTATE AMINOTRANSFERASE 21 IU/L (10-42); BILIRUBIN,TOTAL 0.8 mg/dL (0.2-1.0); BUN - BLOOD UREA NITROGEN 14 mg/dL (6-20); CALCIUM 9.4 mg/dL (8.5-10.3); CARBON DIOXIDE - CO2 31 mmol/L (21-32); CHLORIDE 103 mmol/L (101-111); CHOL/HDL RATIO 3.8 (<4.4); CHOLESTEROL 231 mg/dL; CREATININE 0.8 mg/dL (0.6-1.3); GFR - MDRD 68 (>89); GLUCOSE 98 mg/dL (74-104); HDL CHOLESTEROL 61 mg/dL; LDL CHOLESTEROL,CALCULATED 155 mg/dL; LDL/HDL RATIO 2.5 (<4.4); SODIUM 137 mmol/L (135-145); TOTAL PROTEIN 6.7 g/dL (6.4-8.9); TRIGLYCERIDES 74 mg/dL (48-352); VLDL CHOLESTEROL 15 mg/dL
[2023-06-02 12:34] LABS: ESTIMATED AVERAGE GLUCOSE 108 mg/dL (70-100); HEMOGLOBIN A1c% 5.4 % (4.27-6.07)
[2023-06-02 12:41] LABS: THYROID STIMULATING HORMONE 1.02 uIU/mL (0.34-5.60)
== END 2023-06-02 08:37 | disposition home or self-care (01) ==
LOC: LAB.N 08:36
PROVIDERS: ATTEND Internal Medicine Cardiovascular Disease
DX: E78.5 Hyperlipidemia, unspecified (principal); I48.19 Other persistent atrial fibrillation; I48.0 Paroxysmal atrial fibrillation; R73.01 Impaired fasting glucose; G45.9 Transient cerebral ischemic attack, unspecified
CPT/HCPCS: 36415; 80053; 80061; 83036; 83721; 84443; 85025

== ENCOUNTER 2023-07-24 20:31 | Outpatient (CLI) | payer MEDICARE, OTHER | END 2023-07-24 23:59 | disposition short-term general hospital (02) | LOC: EMS 20:31 | DX: R42 Dizziness and giddiness (principal); H53.9 Unspecified visual disturbance; R11.0 Nausea; R61 Generalized hyperhidrosis; R53.81 Other malaise; R68.89 Other general symptoms and signs | CPT/HCPCS: A0425; A0429; A0888 ==